=== PATIENT | male | born 1985 | race Caucasian/White ===

== ENCOUNTER 2019-11-23 09:31 | Outpatient (CLI) | payer BC, SELFPAY ==
--- NOTE | 2019-11-23 09:45 | XRR_ITS ---
PROCEDURE INFORMATION: Exam: XR Abdomen, 1 View Exam date and time: 11/23/2019 9:37 AM Age: 34 years old Clinical indication: Condition or disease; Kidney or ureter condition; Calculus (stone) in kidney; Patient HX: Routine followup stone check; Additional info: Stones. Previously had stent last year TECHNIQUE: Imaging protocol: XR of the abdomen. Views: Frontal supine view of the abdomen. 1 View. COMPARISON: CR XR KUB [id number] 05/18/2019 8:12 AM FINDINGS: Gastrointestinal tract: The bowel gas pattern is nonspecific. Air filled large bowel including distal rectal gas. Organs: Three calcifications project over the upper pole of the right kidney largest of approximately 5 mm. Bones/joints: Unremarkable. XR/XR KUB [id number] IMPRESSION: 1. Three calcifications project over the upper pole of the right kidney largest of approximately 5 mm. 2. The bowel gas pattern is nonspecific. Air filled large bowel including distal rectal gas.
== END 2019-11-23 09:32 | disposition home or self-care (01) ==
PROVIDERS: PCP Family Medicine; Visit Provider Urology
DX: N20.0 Calculus of kidney (principal); N20.1 Calculus of ureter
CPT/HCPCS: 74018; 81001

== ENCOUNTER 2020-07-10 10:30 | Outpatient (CLI) | payer BC, SELFPAY ==
--- NOTE | 2020-07-10 10:40 | XR_ITS ---
WS: [id number] ABDOMEN: SUPINE FILM HISTORY: STONES COMPARISON: 11/23/[address] 03/18/2019 Normal bowel gas pattern. Numerous small calcifications project over the central RIGHT kidney. The la rgest measures 5 mm. No LEFT calcifications. XR/XR KUB [id number] IMPRESSION: Numerous calcifications over the central RIGHT kidney with the largest measurin g 5 mm. No change.
== END 2020-07-10 10:31 | disposition home or self-care (01) ==
LOC: RADWPI 10:34
PROVIDERS: PCP Family Medicine; Visit Provider Urology
DX: N20.0 Calculus of kidney (principal)
CPT/HCPCS: 74018; 81003

== ENCOUNTER 2022-02-12 14:12 | Emergency (ER) | payer BC, SELFPAY ==
[2022-02-12 14:18] VITALS: BP 153/100; PULSE 76; RESP 16; TEMP 36.5; O2SAT 97; BMI 34.4
--- NOTE | 2022-02-12 14:28 | XR_ITS ---
WS: [id number] XR KUB portable [id number] REASON FOR EXAM: l flank pain FINDINGS: Small right intrarenal calculi unchanged compared to 07/10/2020. Compared to the previous examination of 07/10/2020 there is a calcification on the left adjacent to th e L3-L4 interspace. This would appear to represent a mid left ureteral calculus. In retrospect there may have been a left intrarenal calculus on the previous examination of the disc by overlying 12th ri b. No other urinary tract calculi. No other significant abdominal abnormality. XR/XR KUB portable [id number] IMPRESSION: Left ureteral calculus as above.
[2022-02-12] MEDS: ondansetron 2 mg/ML SDV 2 mL 4 MG IVP (14:48)
[2022-02-12] MEDS: ketorolac 30 mg/mL INJ IVP (14:48)
[2022-02-12] MEDS: sodium chloride 0.9% 1,000 ML 999 ML IV (14:48)
[2022-02-12 14:49] LABS: Basophils # 0.1 10^3/uL (0.0-0.1); Basophils % 1.1 %; Eosinophils # 0.6 10^3/uL (0.0-0.8); Eosinophils % 5.8 %; Hematocrit 40.8 % (42.0-52.0); Hemoglobin 13.8 g/dL (11.7-16.6); Lymphocytes # 3.3 10^3/uL (0.8-4.8); Lymphocytes % 32.4 %; Mean Corpuscular HGB Conc 33.8 g/dL (30.0-36.0); Mean Corpuscular Hemoglobin 31.4 pg (28.0-34.0); Mean Corpuscular Volume 92.7 fl (80-94); Monocytes # 0.7 10^3/uL (0.2-0.9); Monocytes % 6.9 %; Neutrophils # 5.44 10^3/uL (1.8-7.7); Neutrophils % 53.5 %; Nucleated Red Blood Cells % 0 %; Platelet Count 260 10^3/cmm (130-400); White Blood Count 10.2 10^3/uL (4.0-10.0)
--- NOTE | 2022-02-12 14:53 | W.ED.ABDPA2 ---
HPI - Abdominal Pain General: Chief Complaint: Abdominal Pain Stated Complaint: low abd pain Time Seen by Provider: 02/12/22 14:28 Source: patient Mode of arrival: ambulatory Limitations: no limitations History of Present Illness: 36-year-old male who states that he has had a history of kidney stones the past he is having severe left-sided flank pain roughly 2 hours ago. He states this felt like his previous stone that he had nausea with it with pain rating to his groin denies any worsening improving factors she denies any fevers. He denies any diarrhea. He states his pain currently is an 8 out of 10. Associated Symptoms: Denies chills, diarrhea, dysuria, fever(s), nausea and vomiting Review of Systems Const: Denies: fever(s), chills, body aches or change in appetite Eyes: Denies: blurry vision or eye discomfort ENMT: Denies: throat pain or dental pain Card: Denies: chest pain Resp: Denies: dyspnea GI: Denies: abdominal pain, nausea, vomiting or diarrhea : Denies: dysuria Musc: Denies: neck pain or back pain Skin/Breast: Denies: rash Neuro: Denies: headache(s) Psych: Denies: depression [place]/Lymph: Denies: easy bruising All/Imm: Denies: urticaria PFSH ED PFSH: Medical History Bilateral renal stones Left ureteral calculus Right ureteral calculus Family History Family/Other No problems noted. Social History Smoking and tobacco status: former smoker Alcohol intake: never Marital status: Single Current occupational status: employed History of recent travel: No Physical Exam Const: COMMON NORMALS: patient oriented x3 HENMT: COMMON NORMALS: normocephalic and atraumatic HEAD & SCALP: normocephalic and atraumatic Eye: COMMON NORMALS: Equal, round and reactive pupils present and EOMs intact bilaterally PUPIL: Yes Equal, round and reactive pupils present Neck/C-Spine: COMMON NORMALS: full ROM and supple Chest: COMMONS NORMALS: normal inspection of the chest and normal palpation of entire chest wall Resp: COMMON NORMALS: normal respiratory effort, No retractions, No use of accessory muscles and clear to auscultation bilaterally AUSCULTATION: clear to auscultation bilaterally Cardio: COMMON NORMALS: regular rate, regular rhythm and No murmurs present (Cardio) RATE: regular rate RHYTHM: regular rhythm GI: COMMON NORMALS: Normal to inspection, nondistended, normoactive bowel sounds present, Soft to palpation, non-tender and no masses PALPATION: Yes Soft to palpation Extremity: COMMON NORMALS: normal to inspection and full ROM Neuro: COMMON NORMALS: patient oriented x3, moves all extremities and no focal motor deficits Psych: COMMON NORMALS: mental status grossly normal, Normal thought process present and cooperative THOUGHT PROCESS: Normal thought process present Skin: COMMON NORMALS: no rashes or lesions noted and no wounds GENERAL SKIN EXAM: no rashes or lesions noted Course Vital Signs: Vital signs: Vital Signs Temperature 97.7 F 02/12/22 14:18 Pulse Rate 76 02/12/22 14:18 Respiratory Rate 16 02/12/22 14:18 Blood Pressure 153/100 02/12/22 14:18 Pulse Oximetry 97 02/12/22 14:18 Oxygen Delivery Me thod 02/12/22 14:18 MDM - Abdominal Pain Medical Decision Making Patient presents with left-sided flank pain he does have a history of kidney stones he has hematuria stone is seen on his KUB his pain is improved here with Toradol he is stable for discharge we will prescribe him hydrocodone for home he is to follow-up with Dr. Talamantes we will send him home with a urine strainer as well. Lab Data : 02/12/22 14:40 02/12/22 14:40 Labs/Radiology: Radiology Impressions KUB X-Ray 02/12/22 14:28 IMPRESSION: Left ureteral calculus as above. Laboratory Results WBC 10.2 10^3/uL (4.0-10.0) H 02/12/22 14:40 RBC 4.40 10^6/uL (4.1-5.3) 02/12/22 14:40 Hgb 13.8 g/dL (11.7-16.6) 02/12/22 14:40 Hct 40.8 % (42.0-52.0) L 02/12/22 14:40 MCV 92.7 fl (80-94) 02/12/22 14:40 MCH 31.4 pg (28.0-34.0) 02/12/22 14:40 MCHC 33.8 g/dL (30.0-36.0) 02/12/22 14:40 RDW 13.0 % (12.1-15.1) 02/12/22 14:40 Plt Count 260 10^3/cmm (130-400) 02/12/22 14:40 MPV 10.0 fL (7.4-10.4) 02/12/22 14:40 Neut % (Auto) 53.5 % 02/12/22 14:40 Lymph % (Auto) 32.4 % 02/12/22 14:40 [place] % (Auto) 6.9 % 02/12/22 14:40 Eos % (Auto) 5.8 % 02/12/22 14:40 Baso % (Auto) 1.1 % 02/12/22 14:40 Neut # (Auto) 5.44 10^3/uL (1.8-7.7) 02/12/22 14:40 Lymph # (Auto) 3.3 10^3/uL (0.8-4.8) 02/12/22 14:40 [place] # (Auto) 0.7 10^3/uL (0.2-0.9) 02/12/22 14:40 Eos # (Auto) 0.6 10^3/uL (0.0-0.8) 02/12/22 14:40 Baso # (Auto) 0.1 10^3/uL (0.0-0.1) 02/12/22 14:40 Nucleated RBC % (auto) 0 % 02/12/22 14:40 Nucleated RBCs # 0.0 /100WBC 02/12/22 14:40 Sodium 137 mmol/L (136-145) 02/12/22 14:40 Potassium 3.8 mmol/L (3.5-5.1) 02/12/22 14:40 Chloride 102 mmol/L (98-107) 02/12/22 14:40 Carbon Dioxide 25 mmol/L (22-29) 02/12/22 14:40 Anion Gap 13.8 (5-19) 02/12/22 14:40 BUN 15 mg/dL (6-20) 02/12/22 14:40 Creatinine 1.0 mg/dL (0.7-1.2) 02/12/22 14:40 GFR Calculation 85.5 mL/min (90-130) L 02/12/22 14:40 Glucose 109 mg/dL (65-115) 02/12/22 14:40 Calculated Osmolality 285 mOsm/kg (285-295) 02/12/22 14:40 Calcium 9.1 mg/dL (8.5-10.5) 02/12/22 14:40 Total Bilirubin 0.2 mg/dL (0.15-1.2) 02/12/22 14:40 AST 16 U/L (0-40) 02/12/22 14:40 ALT 25 U/L (0-41) 02/12/22 14:40 Alkaline Phosphatase 94 U/L (40-130) 02/12/22 14:40 Total Protein 6.9 g/dL (6.6-8.7) 02/12/22 14:40 Albumin 3.9 g/dL (3.5-5.2) 02/12/22 14:40 Globulin 3.0 g/dL (1.3-4.6) 02/12/22 14:40 Urine Color Yellow (Yellow) 02/12/22 15:40 Urine Appearance Cloudy (CLEAR) 02/12/22 15:40 Urine pH 6.5 (5-7) 02/12/22 15:40 Ur Specific [place] 1.015 (1.005-1.030) 02/12/22 15:40 Urine Protein Neg (Negative) 02/12/22 15:40 Urine Glucose (UA) Norm (Normal) 02/12/22 15:40 Urine Ketones Negative (Negative) 02/12/22 15:40 Urine Blood 3+ (Negative) H 02/12/22 15:40 Urine Nitrate Negative (Negative) 02/12/22 15:40 Urine Bilirubin Neg (Negative) 02/12/22 15:40 Urine Urobilinogen Norm mg/dL (Negative) 02/12/22 15:40 Ur Leukocyte Esterase Negative (Negative) 02/12/22 15:40 Urine RBC >100 /hpf (0-2) H 02/12/22 15:40 Urine WBC 0-4 /hpf (0-5) H 02/12/22 15:40 Ur Squamous Epith Cells Rare /hpf (0-5) 02/12/22 15:40 Amorphous Sediment Not Reportable 02/12/22 15:40 Urine Bacteria Trace /hpf (NONE) 02/12/22 15:40 Discharge Plan Discharge Patient Disposition: Home Clinical Impression: Kidney stone on left side Condition: Stable Prescriptions: New hydrocodone-acetaminophen 5-325 mg tablet 1 tab PO Q6H PRN (Reason: pain) Qty: 14 0RF ondansetron 4 mg tablet,disintegrating 4 mg PO Q6H PRN (Reason: nausea and vomiting) Qty: 14 0RF tamsulosin [Flomax] 0.4 mg capsule 0.4 mg PO DAILY Qty: 7 0RF No Action ibuprofen 200 mg capsule 200 mg PO Q6H PRN (Reason: Pain) felodipine 5 mg tablet extended release 24 hr 5 mg PO DAILY irbesartan 300 mg tablet 300 mg PO DAILY tamsulosin 0.4 mg capsule 0.4 mg PO DAILY PRN (Reason: Urinary Retention) Flonase 50 mcg/actuation [place],Suspension 2 spray INTRANASAL DAILY Rx Instructions: administer into each nostril Claritin 10 mg Tablet 10 mg PO DAILY Discharge Orders: Discharge ED (Routine); Ordered 02/12/22 Ordered By: Garfield Mancia Referrals: David Platt MD [Primary Care Provider] - Discharge Diet: Advance as tolerated Discharge Activity: Resume usual activity Patient Instructions: Kidney Stones (ED), Opioid Safety Coding Level of Care Code ED Regional Property Manager for Chg Fwd Exam Comprehensive
[2022-02-12 15:06] LABS: Alanine Aminotransferase 25 U/L (0-41); Albumin Level 3.9 g/dL (3.5-5.2); Alkaline Phosphatase 94 U/L (40-130); Anion Gap 13.8 (5-19); Aspartate Amino Transferase 16 U/L (0-40); Blood Urea Nitrogen 15 mg/dL (6-20); Calcium 9.1 mg/dL (8.5-10.5); Carbon Dioxide 25 mmol/L (22-29); Chloride 102 mmol/L (98-107); Glomerular Filtration Rate 85.5 mL/min (90-130); Glucose 109 mg/dL (65-115); Osmolality Calculated 285 mOsm/kg (285-295); Potassium 3.8 mmol/L (3.5-5.1); Sodium 137 mmol/L (136-145); Total Bilirubin 0.2 mg/dL (0.15-1.2); Total Protein 6.9 g/dL (6.6-8.7)
[2022-02-12 16:13] LABS: Add Urine Microscopic? YES; Bilirubin Urine Neg (Negative); Blood Urine 3+ (Negative); Glucose Urine UA Norm (Normal); Ketones Urine Negative (Negative); Leukocyte Esterase Urine Negative (Negative); Nitrate Urine Negative (Negative); Protein Urine Neg (Negative); Specific Gravity, Urine 1.015 (1.005-1.030); Urine Appearance Cloudy (CLEAR); Urine Color Yellow (Yellow); Urobilinogen Urine Norm (Negative); pH Urine 6.5 (5-7)
[2022-02-12 16:14] LABS: RBC Urine >100 /hpf (0-2); WBC Urine 0-4 /hpf (0-5)
[2022-02-12 16:15] LABS: Add Urine Culture? Yes; Bacteria Urine TRACE /hpf; Squamous Epithelial Cell Urine RARE /hpf (0-5)
== END 2022-02-12 16:40 | disposition home or self-care (01) ==
PROVIDERS: Emergency Provider Emergency Medicine; PCP Family Medicine
DX: N20.0 Calculus of kidney (principal)
CPT/HCPCS: 36415; 74018; 80053; 81001; 85025; 87086; 96361; 96374; 96375; 99284; J1885; J2405; J7030